=== PATIENT | male | born 1990 | race African-American/Black ===

== ENCOUNTER 2021-12-25 08:16 | Emergency (ER) | payer SELFPAY ==
[2021-12-25] MEDS ORDERED: Ketorolac Tromethamine 30 MG/ML VIAL ONE (10:12)
== END 2021-12-25 10:00 | disposition home or self-care (01) ==
LOC: CSHERS 08:16
DX: S92.321A Displaced fracture of second metatarsal bone, right foot, initial encounter for closed fracture (principal); F17.200 Nicotine dependence, unspecified, uncomplicated; W19.XXXA Unspecified fall, initial encounter
CPT/HCPCS: 96372; J1885